=== PATIENT | female | born 1995 | race Caucasian/White ===

== ENCOUNTER 2021-09-21 21:25 | Emergency (ER) | payer OTHER ==
[~2021-09-21 21:25] MED LIST: PRENATAL MULTI1 EAC4 PO
== END 2021-09-21 23:02 | disposition left against medical advice (07) ==
LOC: ER1 21:25
DX: T44.7X1A Poisoning by beta-adrenoreceptor antagonists, accidental (unintentional), initial encounter (principal)
CPT/HCPCS: 99283